=== PATIENT | male | born 1950 | race Caucasian/White ===

== ENCOUNTER 2023-09-23 09:11 | Day surgery (SDC) | payer MEDICARE, BC ==
[~2023-09-23] VITALS: Ht 172.7 cm; Wt 63.2 kg
[2023-09-23] MEDS ORDERED: ASPI81CH (10:27)
[2023-09-23] MEDS ORDERED: TERA5 (10:27)
[2023-09-23] MEDS ORDERED: Amlodipine Bes2.5 MG (10:27)
--- NOTE | 2023-09-23 12:24 | NUR ---
09/23/23 1224 ROSA GORMAN IV REMOVED CATHETER INTACT [facility]
== END 2023-09-23 12:35 | disposition home or self-care (01) ==
LOC: ORSCSDS 09:11
PROVIDERS: Internal Medicine Gastroenterology
PROC: 0DBL8ZX Excision of Transverse Colon, Via Natural or Artificial Opening Endoscopic, Diagnostic (ICD-10-PCS; principal; 2023-09-23 11:15)
DX: R19.7 Diarrhea, unspecified (principal); K52.831 Collagenous colitis; Z86.010 Personal history of colon polyps; K57.30 Diverticulosis of large intestine without perforation or abscess without bleeding; Z95.1 Presence of aortocoronary bypass graft; E78.5 Hyperlipidemia, unspecified; I10 Essential (primary) hypertension; D64.9 Anemia, unspecified; Z86.19 Personal history of other infectious and parasitic diseases; Z87.891 Personal history of nicotine dependence; Z79.82 Long term (current) use of aspirin; Z79.899 Other long term (current) drug therapy
CPT/HCPCS: 88305; 88313; J2704; J7120

== ENCOUNTER 2023-10-13 10:51 | Day surgery (SDC) | payer MEDICARE, BC ==
[~2023-10-13] VITALS: Ht 172.7 cm; Wt 65.7 kg
[~2023-10-13 10:51] MED LIST: ASPI81CH; Amlodipine Bes2.5 MG; TERA5
[2023-10-13] MEDS ORDERED: VICTOZA 2-0.6 MG/0.1 (11:13)
[2023-10-13] MEDS ORDERED: TRULICITY0.75 MG/01 (11:13)
[2023-10-13] MEDS ORDERED: EXEN5PENI (11:13)
[2023-10-13] MEDS ORDERED: OZEMPIC0.25 MG/02 (11:14)
[2023-10-13] MEDS ORDERED: MOUNJARO2.5 MG/0.5 (11:14)
== END 2023-10-13 13:42 | disposition home or self-care (01) ==
LOC: ORSCSDS 10:51
PROVIDERS: Internal Medicine Gastroenterology
PROC: 0DB98ZX Excision of Duodenum, Via Natural or Artificial Opening Endoscopic, Diagnostic (ICD-10-PCS; principal; 2023-10-13 12:15)
PROC: 0DB58ZX Excision of Esophagus, Via Natural or Artificial Opening Endoscopic, Diagnostic (ICD-10-PCS; principal; 2023-10-13 12:15)
DX: R19.7 Diarrhea, unspecified (principal); K21.00 Gastro-esophageal reflux disease with esophagitis, without bleeding; Z86.19 Personal history of other infectious and parasitic diseases; E78.5 Hyperlipidemia, unspecified; I10 Essential (primary) hypertension; Z86.010 Personal history of colon polyps; Z95.1 Presence of aortocoronary bypass graft; Z79.82 Long term (current) use of aspirin; Z79.899 Other long term (current) drug therapy; Z87.891 Personal history of nicotine dependence
CPT/HCPCS: 88305; J2704; J7120